=== PATIENT | male | born 1975 | race Caucasian/White ===

== ENCOUNTER 2021-07-09 17:59 | Emergency (ER) | payer SELFPAY ==
[2021-07-09 18:32] VITALS: TEMP 98.2; BMI 47.2
[2021-07-09] MEDS ORDERED: ACETAMINOPHEN 1000 MG/100 ML VIAL (NON FORMULARY) IVPB ONE (20:26)
[2021-07-09] MEDS ORDERED: ALBUTEROL SO4 2.5/IPRATROPIUM 0.5 INH SOL 3 ML VIAL.NEB. NEB ONE (20:32)
[2021-07-09] MEDS ORDERED: ACETAMINOPHEN INJECTION 100 ML IVPB ONE (20:32)
[2021-07-09] MEDS: ALBUTEROL SO4 2.5/IPRATROPIUM 0.5 INH SOL 3 ML VIAL.NEB. NEB SCH ×3 (20:46→23:01)
[2021-07-09 21:21] LABS: BASO % 0.6 % (0-2.0); EOS % 3.5 % (0-4.5); HEMATOCRIT 43.7 % (35.4-49); HEMOGLOBIN 15.2 GM/dL (11.7-16.9); LYMPH % 16.1 % (8-40); MCH 31.8 pg (25.7-33.7); MCHC 34.9 g/dl (32.0-35.9); MEAN CELL VOLUME 91.2 fl (80-96); MEAN PLT VOLUME 8.9 fl (7.5-11.1); MONO % 10.4 % (3.8-10.2); NEUT % 69.4 % (42.8-82.8); PLATELET COUNT 335 10^3/uL (134-434); RBC 4.79 M/mm3 (4.00-5.60); RDW 13.5 % (11.9-15.9)
[2021-07-09 21:30] LABS: CHLORIDE 98 mmol/L (98-107); SODIUM 135 mmol/L (136-145)
[2021-07-09 21:33] LABS: CALCIUM 8.5 mg/dL (8.5-10.1)
[2021-07-09 21:34] LABS: ALBUMIN 3.6 g/dl (3.4-5.0); ANION GAP 9 MMOL/L (8-16); CO2 28 mmol/L (21-32); GLUCOSE,RANDOM 80 mg/dL (74-106)
[2021-07-09 21:37] LABS: CREATININE 1.3 mg/dL (0.55-1.3); SGOT/AST 89 U/L (15-37); SGPT/ALT 90 U/L (13-61)
[2021-07-09 21:38] LABS: BILIRUBIN,TOTAL 0.5 mg/dL (0.2-1)
[2021-07-09 21:39] LABS: TOT PROT 7.3 g/dl (6.4-8.2)
[2021-07-09 21:40] LABS: ALK PHOS 95 U/L (45-117)
[2021-07-09 21:42] LABS: N-TERMINAL BNP 38.3 pg/ml (5-125)
[2021-07-09 21:54] LABS: PLATELET ESTIMATE NORMAL
[2021-07-09] MEDS ORDERED: AZITHROMYCIN IVPB 500 MG in DEXTROSE 5%-WATER - 250 ML IVPB ONE ×2 (22:40→22:41)
[2021-07-09] MEDS ORDERED: AZITHROMYCIN 250 MG TABLET PO ONE (22:45)
[2021-07-09] MEDS ORDERED: NICOTINE 7 MG/24 HOURS TOPICAL PATCH TD PRN (22:59)
[2021-07-09] MEDS ORDERED: CEFTRIAXONE 1 MG in DEXTROSE 5%-WATER - 50 ML IVPB ONE (23:02)
[2021-07-09] MEDS ORDERED: AZITHROMYCIN 250 MG TABLET ONE (23:04)
[2021-07-09] MEDS ORDERED: CEFTRIAXONE 1 GM/50 ML BAG ONE (23:04)
[2021-07-09 23:27] VITALS: BP 130/76; PULSE 71
== END 2021-07-10 01:41 | disposition home or self-care (01) ==
LOC: JER 17:59 → UNDOADMIN 21:32 → JERBED 21:32 → JER 07-10 01:41
PROC: 3E0333Z Introduction of Anti-inflammatory into Peripheral Vein, Percutaneous Approach (ICD-10-PCS; principal; 2021-07-09)
PROC: 3E0F7GC Introduction of Other Therapeutic Substance into Respiratory Tract, Via Natural or Artificial Opening (ICD-10-PCS; 2021-07-09)
DX: R05 Cough (principal); E66.01 Morbid (severe) obesity due to excess calories
CPT/HCPCS: 36415; 71045-TC-FY; 80053; 82550; 82553; 83880; 84484; 85025; 87804; 93005; 93010; 99285-25; C9803; J0131; U0003; U0005

== ENCOUNTER 2022-03-06 19:08 | Inpatient (IN) | payer OTHER ==
[2022-03-06] MEDS ORDERED: ONDANSETRON *ODT* 4 MG TABLET SL PRN (20:28)
[2022-03-06] MEDS ORDERED: IBUPROFEN 400 MG TABLET (FP) PO PRN (20:28)
[2022-03-06] MEDS ORDERED: MAG HYDROX/AL HYDROX/SIMETH 30 ML UNIT-DOSE CUP PO PRN (20:28)
[2022-03-06] MEDS ORDERED: BENZOCAINE/MENTHOL (CHLORASEPTIC ) LOZENGE MM PRN (20:28)
[2022-03-06] MEDS ORDERED: DICYCLOMINE HCL 10 MG CAPSULE PO PRN (20:28)
[2022-03-06] MEDS ORDERED: NICOTINE POLACRILEX 2 MG GUM BUC PRN (20:28)
[2022-03-06] MEDS ORDERED: LOPERAMIDE HCL 2 MG CAPSULE PO PRN (20:28)
[2022-03-06] MEDS ORDERED: MAGNESIUM CITRATE 300 ML BOTTLE PO PRN (20:28)
[2022-03-06] MEDS ORDERED: BISMUTH SUBSALICYLATE 524 MG/30 ML PO PRN (20:28)
[2022-03-06] MEDS ORDERED: ACETAMINOPHEN 325 MG TABLET (FP) PO PRN ×2 (20:28)
[2022-03-06] MEDS ORDERED: MAGNESIUM HYDROX 2400MG/30ML ORAL SUSPENSION 30 ML CUP PO PRN (20:28)
[2022-03-06 21:12] VITALS: BMI 42.0
[2022-03-06] MEDS ORDERED: cloNIDine HCL 0.1 MG TABLET PO ONE (21:35)
[2022-03-06] MEDS ORDERED: cloNIDine HCL 0.1 MG TABLET ONE (21:38)
[2022-03-06] MEDS: METHOCARBAMOL 500 MG TABLET PO PRN (23:41)
[2022-03-06] MEDS: THIAMINE HCL 100 MG TABLET (FP) PO SCH (23:48)
[2022-03-06] MEDS: MELATONIN 5 MG TABLETS PO SCH (23:48)
[2022-03-07] MEDS ORDERED: chlordiazePOXIDE HCL 25 MG CAPSULE PO PRN (09:04)
[2022-03-07] MEDS: amLODIPine BESYLATE 10 MG TABLET (FP) PO SCH (10:36)
[2022-03-07] MEDS: chlordiazePOXIDE HCL 25 MG CAPSULE PO SCH ×3 (10:36→22:11)
[2022-03-07] MEDS: PRENATAL VITAMINS W/ FOLIC ACID TABLET (FP) PO SCH (10:36)
[2022-03-07] MEDS: NICOTINE 14 MG/24 HOURS TOPICAL PATCH TD SCH (10:37)
[2022-03-07] MEDS: METHOCARBAMOL 500 MG TABLET PO PRN ×2 (10:41→22:11)
[2022-03-07 10:48] LABS: BLOOD UREA NITROGEN 9.2 mg/dL (7-18); CALCIUM 8.9 mg/dL (8.5-10.1)
[2022-03-07 10:49] LABS: ALBUMIN 3.3 g/dl (3.4-5.0); HEMOGLOBIN 16.7 GM/dL (11.7-16.9); MCH 30.6 pg (25.7-33.7); MCHC 32.7 g/dl (32.0-35.9); MEAN CELL VOLUME 93.6 fl (80-96); MEAN PLT VOLUME 9.1 fl (7.5-11.1); PLATELET COUNT 300 10^3/uL (134-434); RBC 5.45 M/mm3 (4.00-5.60); RDW 13.2 % (11.9-15.9); WHITE BLOOD COUNT 8.3 K/mm3 (4.0-10.0)
[2022-03-07 10:53] LABS: BILIRUBIN,TOTAL 0.9 mg/dL (0.2-1); TOT PROT 7.5 g/dl (6.4-8.2)
[2022-03-07] MEDS: CARVEDILOL 25 MG TABLET (FP) PO SCH ×2 (12:11→22:10)
[2022-03-07] MEDS: LOSARTAN 50MG/HCTZ 12.5MG 1 TAB PO SCH (12:13)
[2022-03-07] MEDS: THIAMINE HCL 100 MG TABLET (FP) PO SCH (22:10)
[2022-03-07] MEDS: MELATONIN 5 MG TABLETS PO SCH (22:12)
[2022-03-08] MEDS: chlordiazePOXIDE HCL 25 MG CAPSULE PO SCH ×4 (05:49→22:22)
[2022-03-08] MEDS: PRENATAL VITAMINS W/ FOLIC ACID TABLET (FP) PO SCH (10:42)
[2022-03-08] MEDS: CARVEDILOL 25 MG TABLET (FP) PO SCH ×2 (10:43→22:21)
[2022-03-08] MEDS: METHOCARBAMOL 500 MG TABLET PO PRN ×2 (10:43→17:33)
[2022-03-08] MEDS: LOSARTAN 50MG/HCTZ 12.5MG 1 TAB PO SCH (10:43)
[2022-03-08] MEDS: amLODIPine BESYLATE 10 MG TABLET (FP) PO SCH (10:43)
[2022-03-08] MEDS: NICOTINE 14 MG/24 HOURS TOPICAL PATCH TD SCH (10:44)
[2022-03-08 14:08] LABS: SARS-CoV-2 NAA Not Detected (Not Detected)
[2022-03-08 14:08] LABS: SARS-CoV-2 NAA Not Detected (Not Detected)
[2022-03-08] MEDS: MELATONIN 5 MG TABLETS PO SCH (22:22)
[2022-03-08] MEDS: THIAMINE HCL 100 MG TABLET (FP) PO SCH (22:22)
[2022-03-09] MEDS ORDERED: chlordiazePOXIDE HCL 10 MG CAPSULE PO PRN
[2022-03-09] MEDS: chlordiazePOXIDE HCL 10 MG CAPSULE PO SCH ×4 (05:56→22:13)
[2022-03-09] MEDS: amLODIPine BESYLATE 10 MG TABLET (FP) PO SCH (10:25)
[2022-03-09] MEDS: METHOCARBAMOL 500 MG TABLET PO PRN ×3 (10:25→22:13)
[2022-03-09] MEDS: PRENATAL VITAMINS W/ FOLIC ACID TABLET (FP) PO SCH (10:25)
[2022-03-09] MEDS: LOSARTAN 50MG/HCTZ 12.5MG 1 TAB PO SCH (10:26)
[2022-03-09] MEDS: CARVEDILOL 25 MG TABLET (FP) PO SCH ×2 (10:27→22:13)
[2022-03-09] MEDS: NICOTINE 14 MG/24 HOURS TOPICAL PATCH TD SCH (10:28)
[2022-03-09] MEDS: THIAMINE HCL 100 MG TABLET (FP) PO SCH (22:12)
[2022-03-09] MEDS: MELATONIN 5 MG TABLETS PO SCH (22:13)
[2022-03-10] MEDS: chlordiazePOXIDE HCL 10 MG CAPSULE PO SCH ×2 (05:55→18:31)
[2022-03-10] MEDS: LOSARTAN 50MG/HCTZ 12.5MG 1 TAB PO SCH (10:32)
[2022-03-10] MEDS: CARVEDILOL 25 MG TABLET (FP) PO SCH (10:32)
[2022-03-10] MEDS: PRENATAL VITAMINS W/ FOLIC ACID TABLET (FP) PO SCH (10:32)
[2022-03-10] MEDS: METHOCARBAMOL 500 MG TABLET PO PRN (10:33)
[2022-03-10] MEDS: amLODIPine BESYLATE 10 MG TABLET (FP) PO SCH (10:33)
[2022-03-10] MEDS: NICOTINE 14 MG/24 HOURS TOPICAL PATCH TD SCH (10:33)
[2022-03-10 18:37] VITALS: BP 135/77; PULSE 75; TEMP 97.7
[2022-03-11] MEDS ORDERED: chlordiazePOXIDE HCL 10 MG CAPSULE PO ONE (05:00)
== END 2022-03-10 19:20 | disposition home or self-care (01) | DRG 775 ==
LOC: YASAS 19:08 → Y6N 22:52
PROVIDERS: ADMIT Allergy & Immunology; ATTEND Allergy & Immunology
PROC: HZ2ZZZZ Detoxification Services for Substance Abuse Treatment (ICD-10-PCS; principal; 2022-03-06)
DX: F10.230 Alcohol dependence with withdrawal, uncomplicated (principal); F17.210 Nicotine dependence, cigarettes, uncomplicated; F10.24 Alcohol dependence with alcohol-induced mood disorder; F10.280 Alcohol dependence with alcohol-induced anxiety disorder; F10.282 Alcohol dependence with alcohol-induced sleep disorder; E78.5 Hyperlipidemia, unspecified; I11.0 Hypertensive heart disease with heart failure; I50.9 Heart failure, unspecified; G47.33 Obstructive sleep apnea (adult) (pediatric); Z62.810 Personal history of physical and sexual abuse in childhood; E66.01 Morbid (severe) obesity due to excess calories; Z68.41 Body mass index [BMI] 40.0-44.9, adult; Z28.310 Unvaccinated for COVID-19; Z56.0 Unemployment, unspecified; Z59.00 Homelessness unspecified
CPT/HCPCS: 36415; 80053; 85027; 86780; 93005; 93010; C9803-CS; J0735; U0003; U0005

== ENCOUNTER 2022-03-14 12:03 | Inpatient (IN) | payer BC, OTHER ==
[2022-03-14] MEDS ORDERED: MAGNESIUM SULF 50% (8.12 MEQ/2 ML-1 GM VIAL) IVPB ONE ×3 (13:22→13:52)
[2022-03-14] MEDS ORDERED: NITROGLYCERIN SUBLINGUAL 1/150 0.4 MG TAB SL ONE (13:23)
[2022-03-14] MEDS ORDERED: MAGNESIUM SULF 50% (8.12 MEQ/2 ML-1 GM VIAL) ONE (13:35)
[2022-03-14] MEDS ORDERED: NITROGLYCERIN SUBLINGUAL 1/150 0.4 MG TAB ONE (13:36)
[2022-03-14 13:52] LABS: BASO % 0.8 % (0-2.0); EOS % 2.9 % (0-4.5); HEMATOCRIT 47.6 % (35.4-49); LYMPH % 17.5 % (8-40); MCH 30.9 pg (25.7-33.7); MCHC 33.5 g/dl (32.0-35.9); MEAN CELL VOLUME 92.3 fl (80-96); MEAN PLT VOLUME 8.7 fl (7.5-11.1); MONO % 16.6 % (3.8-10.2); NEUT % 62.2 % (42.8-82.8); PLATELET COUNT 252 10^3/uL (134-434); RBC 5.16 M/mm3 (4.00-5.60); RDW 13.2 % (11.9-15.9); WHITE BLOOD COUNT 7.3 K/mm3 (4.0-10.0)
[2022-03-14 14:17] LABS: CALCIUM 8.9 mg/dL (8.5-10.1)
[2022-03-14 14:18] LABS: ALBUMIN 3.2 g/dl (3.4-5.0); BLOOD UREA NITROGEN 10.3 mg/dL (7-18)
[2022-03-14 14:22] LABS: BILIRUBIN,TOTAL 0.4 mg/dL (0.2-1)
[2022-03-14 14:25] LABS: TOT PROT 6.9 g/dl (6.4-8.2)
[2022-03-14 14:30] LABS: N-TERMINAL BNP 120.4 pg/ml (5-125)
[2022-03-14 15:03] LABS: URINE APPEARANCE CLEAR; URINE BILIRUBIN NEGATIVE (NEGATIVE); URINE COLOR YELLOW; URINE GLUCOSE (UA) TRACE (NEGATIVE); URINE KETONE NEGATIVE (NEGATIVE); URINE LEUK ESTERASE NEGATIVE (NEGATIVE); URINE NITRITE NEGATIVE (NEGATIVE); URINE PROTEIN NEGATIVE (NEGATIVE); URINE UROBILINOGEN 0.2 mg/dL (0.2-1.0)
[2022-03-14] MEDS ORDERED: FUROSEMIDE 40 MG/4 ML INJECTABLE VIAL IVPUSH ONE (15:17)
[2022-03-14] MEDS ORDERED: FUROSEMIDE 40 MG/4 ML INJECTABLE VIAL ONE (15:29)
[2022-03-14] MEDS ORDERED: LOSARTAN POTASSIUM 50 MG TABLET PO ONE (16:43)
[2022-03-14 18:28] LABS: METHADONE, UR NEGATIVE (NEGATIVE)
[2022-03-14 18:29] LABS: OPIATES, URI NEGATIVE (NEGATIVE); PHENCYCLIDINE,URINE NEGATIVE (NEGATIVE); URINE AMPHETAMINES NEGATIVE (NEGATIVE)
[2022-03-14 18:31] LABS: COCAINE, UR POSITIVE (NEGATIVE); URINE BARBITURATES NEGATIVE (NEGATIVE); URINE BENZODIAZEPINES POSITIVE (NEGATIVE)
[2022-03-14 20:31] VITALS: BMI 45.3
[2022-03-14] MEDS: diazePAM 5 MG TABLET PO PRN (21:58)
[2022-03-14] MEDS: ENOXAPARIN NA (PORCINE) 40 MG/0.4 ML DISP.SYRIN SQ SCH (21:58)
[2022-03-15 07:52] LABS: BLOOD UREA NITROGEN 15.7 mg/dL (7-18)
[2022-03-15 07:55] LABS: ALBUMIN 3.2 g/dl (3.4-5.0)
[2022-03-15 07:56] LABS: BILIRUBIN,TOTAL 0.7 mg/dL (0.2-1)
[2022-03-15 07:59] LABS: TOT PROT 6.8 g/dl (6.4-8.2)
[2022-03-15] MEDS ORDERED: FUROSEMIDE 40 MG/4 ML INJECTABLE VIAL IVPUSH SCH (10:00)
[2022-03-15] MEDS ORDERED: HYDROCHLOROTHIAZIDE 25 MG TABLET (FP) PO SCH (10:00)
[2022-03-15] MEDS: ENOXAPARIN NA (PORCINE) 40 MG/0.4 ML DISP.SYRIN SQ SCH ×2 (10:57→21:39)
[2022-03-15] MEDS: amLODIPine BESYLATE 10 MG TABLET (FP) PO SCH (10:58)
[2022-03-15] MEDS: LOSARTAN POTASSIUM 50 MG TABLET PO SCH (10:59)
[2022-03-15] MEDS: CARVEDILOL 25 MG TABLET (FP) PO SCH ×2 (12:00→21:39)
[2022-03-15] MEDS: ATORVASTATIN CA 40 MG TABLET (FP) PO SCH (21:39)
[2022-03-15] MEDS: diazePAM 5 MG TABLET PO PRN (23:00)
[2022-03-16] MEDS: FUROSEMIDE 40 MG TABLET (FP) PO SCH ×2 (05:53→14:01)
[2022-03-16 07:58] LABS: ALBUMIN 3.1 g/dl (3.4-5.0)
[2022-03-16 07:59] LABS: CALCIUM 9.3 mg/dL (8.5-10.1)
[2022-03-16 08:00] LABS: BILIRUBIN,TOTAL 0.5 mg/dL (0.2-1)
[2022-03-16 08:02] LABS: TOT PROT 6.5 g/dl (6.4-8.2)
[2022-03-16] MEDS: ENOXAPARIN NA (PORCINE) 40 MG/0.4 ML DISP.SYRIN SQ SCH ×2 (09:36→21:56)
[2022-03-16] MEDS: CARVEDILOL 25 MG TABLET (FP) PO SCH ×2 (09:37→21:56)
[2022-03-16] MEDS: amLODIPine BESYLATE 10 MG TABLET (FP) PO SCH (09:37)
[2022-03-16] MEDS: LOSARTAN POTASSIUM 50 MG TABLET PO SCH (09:37)
[2022-03-16] MEDS: ATORVASTATIN CA 40 MG TABLET (FP) PO SCH (21:56)
[2022-03-16] MEDS: diazePAM 5 MG TABLET PO PRN (21:56)
[2022-03-17] MEDS: FUROSEMIDE 40 MG TABLET (FP) PO SCH ×2 (07:22→13:12)
[2022-03-17] MEDS: LOSARTAN POTASSIUM 50 MG TABLET PO SCH (09:12)
[2022-03-17] MEDS: CARVEDILOL 25 MG TABLET (FP) PO SCH ×2 (09:12→21:29)
[2022-03-17] MEDS: ENOXAPARIN NA (PORCINE) 40 MG/0.4 ML DISP.SYRIN SQ SCH ×2 (09:12→21:29)
[2022-03-17] MEDS: amLODIPine BESYLATE 10 MG TABLET (FP) PO SCH (09:12)
[2022-03-17] MEDS ORDERED: CEFTRIAXONE 1 GM in DEXTROSE 5%-WATER - 50 ML IVPB SCH ×2 (14:45→15:00)
[2022-03-17] MEDS ORDERED: DEXTROSE 5%-WATER - 50 ML IVPB ONE (14:52)
[2022-03-17] MEDS ORDERED: cefTRIAXone SODIUM 1 GM VIAL ONE (14:52)
[2022-03-17] MEDS: ATORVASTATIN CA 40 MG TABLET (FP) PO SCH (21:29)
[2022-03-17] MEDS ORDERED: diazePAM 5 MG TABLET PO ONE (21:42)
[2022-03-18] MEDS: FUROSEMIDE 40 MG TABLET (FP) PO SCH ×2 (05:49→13:54)
[2022-03-18 07:55] LABS: BASO % 0.7 % (0-2.0); HEMATOCRIT 47.9 % (35.4-49); LYMPH % 19.5 % (8-40); MCH 31.1 pg (25.7-33.7); MCHC 33.3 g/dl (32.0-35.9); MEAN CELL VOLUME 93.5 fl (80-96); MEAN PLT VOLUME 8.8 fl (7.5-11.1); MONO % 8.2 % (3.8-10.2); NEUT % 67.6 % (42.8-82.8); PLATELET COUNT 302 10^3/uL (134-434); RBC 5.13 M/mm3 (4.00-5.60); RDW 12.8 % (11.9-15.9); WHITE BLOOD COUNT 10.9 K/mm3 (4.0-10.0)
[2022-03-18 08:14] LABS: CALCIUM 9.1 mg/dL (8.5-10.1)
[2022-03-18 08:15] LABS: BLOOD UREA NITROGEN 17.2 mg/dL (7-18)
[2022-03-18 08:18] LABS: CREATININE 1.1 mg/dL (0.55-1.3)
[2022-03-18] MEDS: amLODIPine BESYLATE 10 MG TABLET (FP) PO SCH (09:38)
[2022-03-18] MEDS: ENOXAPARIN NA (PORCINE) 40 MG/0.4 ML DISP.SYRIN SQ SCH ×2 (09:38→21:05)
[2022-03-18] MEDS: LOSARTAN POTASSIUM 50 MG TABLET PO SCH (09:38)
[2022-03-18] MEDS: CARVEDILOL 25 MG TABLET (FP) PO SCH ×2 (09:38→21:04)
[2022-03-18] MEDS ORDERED: MELATONIN 5 MG TABLETS PO ONE (21:19)
[2022-03-18] MEDS ORDERED: ATORVASTATIN CA 40 MG TABLET (FP) PO SCH (22:00)
[2022-03-19] MEDS: FUROSEMIDE 40 MG TABLET (FP) PO SCH (06:19)
[2022-03-19 08:50] LABS: HEMATOCRIT 48.2 % (35.4-49); HEMOGLOBIN 16.4 GM/dL (11.7-16.9); MCH 31.1 pg (25.7-33.7); MEAN CELL VOLUME 91.6 fl (80-96); MEAN PLT VOLUME 7.8 fl (7.5-11.1); PLATELET COUNT 302 10^3/uL (134-434); RBC 5.26 M/mm3 (4.00-5.60); WHITE BLOOD COUNT 9.3 K/mm3 (4.0-10.0)
[2022-03-19 09:15] LABS: ALBUMIN 3.2 g/dl (3.4-5.0)
[2022-03-19 09:16] LABS: BLOOD UREA NITROGEN 16.6 mg/dL (7-18)
[2022-03-19 09:23] LABS: BILIRUBIN,TOTAL 0.8 mg/dL (0.2-1); CREATININE 0.9 mg/dL (0.55-1.3); TOT PROT 6.8 g/dl (6.4-8.2)
[2022-03-19] MEDS ORDERED: LOSARTAN POTASSIUM 50 MG TABLET PO SCH (10:00)
[2022-03-19] MEDS ORDERED: amLODIPine BESYLATE 10 MG TABLET (FP) PO SCH (10:00)
[2022-03-19] MEDS: CARVEDILOL 25 MG TABLET (FP) PO SCH (10:03)
[2022-03-19] MEDS: ENOXAPARIN NA (PORCINE) 40 MG/0.4 ML DISP.SYRIN SQ SCH (10:05)
[2022-03-19 10:32] LABS: ANISOCYTOSIS 0; HELMET CELLS 0; HOWELL-JOLLY BODIES 0; MACROCYTOSIS 0; OVALOCYTE 0; ROULEAU 0; SICKELED CELLS 0; TARGET CELLS 0; TEAR DROP CELLS 0; TOXIC GRANULATION 0
[2022-03-19 12:02] VITALS: BP 147/99; PULSE 78; TEMP 97.8
== END 2022-03-19 12:34 | disposition other institution (70) | DRG 291 ==
LOC: JER 12:03 → JERBED 15:54 → OBSVTOIN 16:40 → J4W 17:56 → J5S 03-18 10:24
PROVIDERS: ADMIT Internal Medicine
DX: I11.0 Hypertensive heart disease with heart failure (principal); I50.33 Acute on chronic diastolic (congestive) heart failure; I16.9 Hypertensive crisis, unspecified; Z68.42 Body mass index [BMI] 45.0-49.9, adult; E66.01 Morbid (severe) obesity due to excess calories; G47.33 Obstructive sleep apnea (adult) (pediatric); R94.31 Abnormal electrocardiogram [ECG] [EKG]; R74.01 Elevation of levels of liver transaminase levels; R79.89 Other specified abnormal findings of blood chemistry; F10.10 Alcohol abuse, uncomplicated; F14.10 Cocaine abuse, uncomplicated; Z91.14 Patient's other noncompliance with medication regimen; E78.5 Hyperlipidemia, unspecified; Z59.00 Homelessness unspecified
CPT/HCPCS: 36415; 71046-TC-FY; 80048; 80053; 80061; 80307; 81003; 83036; 83735; 83880; 84484; 85025; 86705; 86803; 87077; 87086; 87340; 87517; 93005; 93010; 93306-TC; 99285-25; C9803-CS; G0378; U0003; U0005

== ENCOUNTER 2022-03-19 13:27 | Inpatient (IN) | payer OTHER ==
[2022-03-19] MEDS ORDERED: LOPERAMIDE HCL 2 MG CAPSULE PO PRN (15:04)
[2022-03-19] MEDS ORDERED: guaiFENesin 200 MG/10 ML 10 ML UNIT-DOSE CUPS PO PRN (15:04)
[2022-03-19] MEDS ORDERED: MAGNESIUM CITRATE 300 ML BOTTLE PO PRN (15:04)
[2022-03-19] MEDS ORDERED: NICOTINE 10 MG CARTRIDGE (INHALER) IH PRN (15:04)
[2022-03-19] MEDS ORDERED: MAG HYDROX/AL HYDROX/SIMETH 30 ML UNIT-DOSE CUP PO PRN (15:04)
[2022-03-19] MEDS ORDERED: ACETAMINOPHEN 325 MG TABLET (FP) PO PRN (15:04)
[2022-03-19] MEDS ORDERED: P-EPHED 60MG/TRIPROLIDI 2.5MG TABLET PO PRN (15:04)
[2022-03-19] MEDS ORDERED: NALOXONE HCL (KLOXXADO) 8 MG SPRAY NS PRN (15:04)
[2022-03-19] MEDS ORDERED: MAGNESIUM HYDROX 2400MG/30ML ORAL SUSPENSION 30 ML CUP PO PRN (15:04)
[2022-03-19] MEDS ORDERED: IBUPROFEN 400 MG TABLET (FP) PO PRN (15:04)
[2022-03-19 21:13] VITALS: BMI 45.4
[2022-03-20] MEDS: PRENATAL VITAMINS W/ FOLIC ACID TABLET (FP) PO SCH ×2 (00:22→09:57)
[2022-03-20] MEDS: NICOTINE 7 MG/24 HOURS TOPICAL PATCH TD SCH ×2 (00:22→09:58)
[2022-03-20] MEDS: hydrOXYzine PAMOATE 25 MG CAPSULE (FP) PO SCH ×7 (00:22→21:18)
[2022-03-20] MEDS: THIAMINE HCL 100 MG TABLET (FP) PO SCH ×2 (00:28→21:18)
[2022-03-20] MEDS: MELATONIN 5 MG TABLETS PO SCH ×2 (00:28→21:18)
[2022-03-20] MEDS: ATORVASTATIN CA 40 MG TABLET (FP) PO SCH ×2 (00:29→21:18)
[2022-03-20] MEDS: CARVEDILOL 25 MG TABLET (FP) PO SCH ×3 (00:32→21:18)
[2022-03-20] MEDS: FUROSEMIDE 40 MG TABLET (FP) PO SCH ×2 (05:45→13:31)
[2022-03-20] MEDS: amLODIPine BESYLATE 10 MG TABLET (FP) PO SCH (09:57)
[2022-03-20] MEDS: LOSARTAN POTASSIUM 50 MG TABLET PO SCH (14:46)
[2022-03-20 17:04] LABS: EPI CELLS 24 /uL (0-25.1); HYALINE CASTS 10 /uL (0-3.1); URINE APPEARANCE CLEAR; URINE BACTERIA 5 /uL (0-1359); URINE BILIRUBIN NEGATIVE (NEGATIVE); URINE COLOR YELLOW; URINE GLUCOSE (UA) NEGATIVE (NEGATIVE); URINE KETONE NEGATIVE (NEGATIVE); URINE LEUK ESTERASE NEGATIVE (NEGATIVE); URINE NITRITE NEGATIVE (NEGATIVE); URINE PROTEIN 1+ (NEGATIVE); URINE RBC 11 /uL (0-23.9); URINE UROBILINOGEN 0.2 mg/dL (0.2-1.0); URINE WBC 16 /uL (0-25.8)
[2022-03-21] MEDS: FUROSEMIDE 40 MG TABLET (FP) PO SCH ×2 (05:58→14:08)
[2022-03-21] MEDS: hydrOXYzine PAMOATE 25 MG CAPSULE (FP) PO SCH ×5 (05:58→21:12)
[2022-03-21] MEDS: LOSARTAN POTASSIUM 50 MG TABLET PO SCH (10:39)
[2022-03-21] MEDS: CARVEDILOL 25 MG TABLET (FP) PO SCH ×2 (10:39→21:12)
[2022-03-21] MEDS: amLODIPine BESYLATE 10 MG TABLET (FP) PO SCH (10:39)
[2022-03-21] MEDS: PRENATAL VITAMINS W/ FOLIC ACID TABLET (FP) PO SCH (10:39)
[2022-03-21] MEDS: NICOTINE 7 MG/24 HOURS TOPICAL PATCH TD SCH (10:40)
[2022-03-21] MEDS: MELATONIN 5 MG TABLETS PO SCH (21:12)
[2022-03-21] MEDS: ATORVASTATIN CA 40 MG TABLET (FP) PO SCH (21:12)
[2022-03-21] MEDS: THIAMINE HCL 100 MG TABLET (FP) PO SCH (21:12)
[2022-03-22] MEDS: FUROSEMIDE 40 MG TABLET (FP) PO SCH ×2 (06:34→13:41)
[2022-03-22] MEDS: hydrOXYzine PAMOATE 25 MG CAPSULE (FP) PO SCH ×5 (06:34→21:30)
[2022-03-22] MEDS: amLODIPine BESYLATE 10 MG TABLET (FP) PO SCH (10:09)
[2022-03-22] MEDS: LOSARTAN POTASSIUM 50 MG TABLET PO SCH (10:09)
[2022-03-22] MEDS: PRENATAL VITAMINS W/ FOLIC ACID TABLET (FP) PO SCH (10:09)
[2022-03-22] MEDS: CARVEDILOL 25 MG TABLET (FP) PO SCH ×2 (10:09→21:28)
[2022-03-22] MEDS: NICOTINE 7 MG/24 HOURS TOPICAL PATCH TD SCH (10:10)
[2022-03-22] MEDS: MELATONIN 5 MG TABLETS PO SCH (21:29)
[2022-03-22] MEDS: THIAMINE HCL 100 MG TABLET (FP) PO SCH (21:29)
[2022-03-22] MEDS: ATORVASTATIN CA 40 MG TABLET (FP) PO SCH (21:29)
[2022-03-23] MEDS: hydrOXYzine PAMOATE 25 MG CAPSULE (FP) PO SCH ×5 (06:06→21:11)
[2022-03-23] MEDS: FUROSEMIDE 40 MG TABLET (FP) PO SCH ×2 (06:06→14:05)
[2022-03-23] MEDS: LOSARTAN POTASSIUM 50 MG TABLET PO SCH (10:06)
[2022-03-23] MEDS: amLODIPine BESYLATE 10 MG TABLET (FP) PO SCH (10:06)
[2022-03-23] MEDS: CARVEDILOL 25 MG TABLET (FP) PO SCH ×2 (10:06→22:54)
[2022-03-23] MEDS: PRENATAL VITAMINS W/ FOLIC ACID TABLET (FP) PO SCH (10:06)
[2022-03-23] MEDS: NICOTINE 7 MG/24 HOURS TOPICAL PATCH TD SCH (10:06)
[2022-03-23 14:09] LABS: SARS-CoV-2 NAA Not Detected (Not Detected)
[2022-03-23] MEDS: ATORVASTATIN CA 40 MG TABLET (FP) PO SCH (21:11)
[2022-03-23] MEDS: MELATONIN 5 MG TABLETS PO SCH (21:13)
[2022-03-23] MEDS: THIAMINE HCL 100 MG TABLET (FP) PO SCH (21:13)
[2022-03-24] MEDS: FUROSEMIDE 40 MG TABLET (FP) PO SCH ×2 (06:23→13:55)
[2022-03-24] MEDS: hydrOXYzine PAMOATE 25 MG CAPSULE (FP) PO SCH ×5 (06:23→21:10)
[2022-03-24] MEDS: amLODIPine BESYLATE 10 MG TABLET (FP) PO SCH (10:03)
[2022-03-24] MEDS: CARVEDILOL 25 MG TABLET (FP) PO SCH ×2 (10:03→21:39)
[2022-03-24] MEDS: NICOTINE 7 MG/24 HOURS TOPICAL PATCH TD SCH (10:03)
[2022-03-24] MEDS: PRENATAL VITAMINS W/ FOLIC ACID TABLET (FP) PO SCH (10:03)
[2022-03-24] MEDS: LOSARTAN POTASSIUM 50 MG TABLET PO SCH (10:03)
[2022-03-24] MEDS: ATORVASTATIN CA 40 MG TABLET (FP) PO SCH (21:10)
[2022-03-24] MEDS: MELATONIN 5 MG TABLETS PO SCH (21:10)
[2022-03-24] MEDS: THIAMINE HCL 100 MG TABLET (FP) PO SCH (21:10)
[2022-03-25] MEDS: hydrOXYzine PAMOATE 25 MG CAPSULE (FP) PO SCH ×5 (06:47→21:15)
[2022-03-25] MEDS: FUROSEMIDE 40 MG TABLET (FP) PO SCH ×2 (06:47→14:22)
[2022-03-25] MEDS: CARVEDILOL 25 MG TABLET (FP) PO SCH ×2 (09:57→21:15)
[2022-03-25] MEDS: amLODIPine BESYLATE 10 MG TABLET (FP) PO SCH (09:57)
[2022-03-25] MEDS: PRENATAL VITAMINS W/ FOLIC ACID TABLET (FP) PO SCH (09:57)
[2022-03-25] MEDS: NICOTINE 7 MG/24 HOURS TOPICAL PATCH TD SCH (09:59)
[2022-03-25] MEDS: LOSARTAN POTASSIUM 50 MG TABLET PO SCH (10:29)
[2022-03-25] MEDS: THIAMINE HCL 100 MG TABLET (FP) PO SCH (21:15)
[2022-03-25] MEDS: ATORVASTATIN CA 40 MG TABLET (FP) PO SCH (21:15)
[2022-03-25] MEDS: MELATONIN 5 MG TABLETS PO SCH (21:15)
[2022-03-26] MEDS: FUROSEMIDE 40 MG TABLET (FP) PO SCH ×2 (06:22→14:35)
[2022-03-26] MEDS: hydrOXYzine PAMOATE 25 MG CAPSULE (FP) PO SCH (06:22)
[2022-03-26] MEDS: PRENATAL VITAMINS W/ FOLIC ACID TABLET (FP) PO SCH (10:05)
[2022-03-26] MEDS: amLODIPine BESYLATE 10 MG TABLET (FP) PO SCH (10:06)
[2022-03-26] MEDS: NICOTINE 7 MG/24 HOURS TOPICAL PATCH TD SCH (10:06)
[2022-03-26] MEDS: LOSARTAN POTASSIUM 50 MG TABLET PO SCH (10:06)
[2022-03-26] MEDS: hydrOXYzine PAMOATE 25 MG CAPSULE (FP) PO PRN ×2 (10:06→21:25)
[2022-03-26] MEDS: CARVEDILOL 25 MG TABLET (FP) PO SCH ×2 (10:07→21:24)
[2022-03-26] MEDS: MELATONIN 5 MG TABLETS PO SCH (21:24)
[2022-03-26] MEDS: ATORVASTATIN CA 40 MG TABLET (FP) PO SCH (21:24)
[2022-03-26] MEDS: THIAMINE HCL 100 MG TABLET (FP) PO SCH (21:24)
[2022-03-27] MEDS: FUROSEMIDE 40 MG TABLET (FP) PO SCH ×2 (06:24→14:08)
[2022-03-27] MEDS: LOSARTAN POTASSIUM 50 MG TABLET PO SCH (09:48)
[2022-03-27] MEDS: CARVEDILOL 25 MG TABLET (FP) PO SCH ×2 (09:48→21:37)
[2022-03-27] MEDS: PRENATAL VITAMINS W/ FOLIC ACID TABLET (FP) PO SCH (09:48)
[2022-03-27] MEDS: NICOTINE 7 MG/24 HOURS TOPICAL PATCH TD SCH (09:48)
[2022-03-27] MEDS: amLODIPine BESYLATE 10 MG TABLET (FP) PO SCH (09:48)
[2022-03-27] MEDS: ATORVASTATIN CA 40 MG TABLET (FP) PO SCH (21:37)
[2022-03-27] MEDS: MELATONIN 5 MG TABLETS PO SCH (21:37)
[2022-03-27] MEDS: hydrOXYzine PAMOATE 25 MG CAPSULE (FP) PO PRN (21:37)
[2022-03-27] MEDS: THIAMINE HCL 100 MG TABLET (FP) PO SCH (21:37)
[2022-03-28] MEDS: FUROSEMIDE 40 MG TABLET (FP) PO SCH ×2 (06:18→13:51)
[2022-03-28] MEDS: PRENATAL VITAMINS W/ FOLIC ACID TABLET (FP) PO SCH (10:23)
[2022-03-28] MEDS: LOSARTAN POTASSIUM 50 MG TABLET PO SCH (10:23)
[2022-03-28] MEDS: NICOTINE 7 MG/24 HOURS TOPICAL PATCH TD SCH (10:24)
[2022-03-28] MEDS: CARVEDILOL 25 MG TABLET (FP) PO SCH ×2 (10:24→21:15)
[2022-03-28] MEDS: amLODIPine BESYLATE 10 MG TABLET (FP) PO SCH (10:24)
[2022-03-28] MEDS: THIAMINE HCL 100 MG TABLET (FP) PO SCH (21:15)
[2022-03-28] MEDS: ATORVASTATIN CA 40 MG TABLET (FP) PO SCH (21:15)
[2022-03-28] MEDS: MELATONIN 5 MG TABLETS PO SCH (21:15)
[2022-03-28] MEDS: hydrOXYzine PAMOATE 25 MG CAPSULE (FP) PO PRN (21:15)
[2022-03-29] MEDS: FUROSEMIDE 40 MG TABLET (FP) PO SCH ×2 (06:33→14:00)
[2022-03-29] MEDS: hydrOXYzine PAMOATE 25 MG CAPSULE (FP) PO PRN ×2 (06:33→21:42)
[2022-03-29] MEDS: amLODIPine BESYLATE 10 MG TABLET (FP) PO SCH (10:17)
[2022-03-29] MEDS: CARVEDILOL 25 MG TABLET (FP) PO SCH ×2 (10:17→21:42)
[2022-03-29] MEDS: PRENATAL VITAMINS W/ FOLIC ACID TABLET (FP) PO SCH (10:18)
[2022-03-29] MEDS: LOSARTAN POTASSIUM 50 MG TABLET PO SCH (10:18)
[2022-03-29] MEDS: NICOTINE 7 MG/24 HOURS TOPICAL PATCH TD SCH (10:18)
[2022-03-29] MEDS: THIAMINE HCL 100 MG TABLET (FP) PO SCH (21:41)
[2022-03-29] MEDS: MELATONIN 5 MG TABLETS PO SCH (21:41)
[2022-03-29] MEDS: ATORVASTATIN CA 40 MG TABLET (FP) PO SCH (21:42)
[2022-03-30] MEDS: FUROSEMIDE 40 MG TABLET (FP) PO SCH ×2 (07:03→14:42)
[2022-03-30] MEDS: hydrOXYzine PAMOATE 25 MG CAPSULE (FP) PO PRN ×2 (07:06→21:27)
[2022-03-30] MEDS: NICOTINE 7 MG/24 HOURS TOPICAL PATCH TD SCH (10:50)
[2022-03-30] MEDS: amLODIPine BESYLATE 10 MG TABLET (FP) PO SCH (10:51)
[2022-03-30] MEDS: CARVEDILOL 25 MG TABLET (FP) PO SCH ×2 (10:51→21:27)
[2022-03-30] MEDS: LOSARTAN POTASSIUM 50 MG TABLET PO SCH (10:51)
[2022-03-30] MEDS: PRENATAL VITAMINS W/ FOLIC ACID TABLET (FP) PO SCH (10:51)
[2022-03-30] MEDS: MELATONIN 5 MG TABLETS PO SCH (21:27)
[2022-03-30] MEDS: ATORVASTATIN CA 40 MG TABLET (FP) PO SCH (21:27)
[2022-03-30] MEDS: THIAMINE HCL 100 MG TABLET (FP) PO SCH (21:27)
[2022-03-31] MEDS: hydrOXYzine PAMOATE 25 MG CAPSULE (FP) PO PRN ×2 (06:05→21:31)
[2022-03-31] MEDS: FUROSEMIDE 40 MG TABLET (FP) PO SCH ×2 (06:05→14:18)
[2022-03-31] MEDS: amLODIPine BESYLATE 10 MG TABLET (FP) PO SCH (10:26)
[2022-03-31] MEDS: LOSARTAN POTASSIUM 50 MG TABLET PO SCH (10:26)
[2022-03-31] MEDS: CARVEDILOL 25 MG TABLET (FP) PO SCH ×2 (10:26→21:31)
[2022-03-31] MEDS: NICOTINE 7 MG/24 HOURS TOPICAL PATCH TD SCH (10:26)
[2022-03-31] MEDS: PRENATAL VITAMINS W/ FOLIC ACID TABLET (FP) PO SCH (10:26)
[2022-03-31] MEDS: THIAMINE HCL 100 MG TABLET (FP) PO SCH (21:31)
[2022-03-31] MEDS: MELATONIN 5 MG TABLETS PO SCH (21:31)
[2022-03-31] MEDS: ATORVASTATIN CA 40 MG TABLET (FP) PO SCH (21:31)
[2022-04-01] MEDS: hydrOXYzine PAMOATE 25 MG CAPSULE (FP) PO PRN ×2 (06:17→21:31)
[2022-04-01] MEDS: FUROSEMIDE 40 MG TABLET (FP) PO SCH ×2 (06:17→14:58)
[2022-04-01] MEDS: CARVEDILOL 25 MG TABLET (FP) PO SCH ×2 (10:36→21:32)
[2022-04-01] MEDS: LOSARTAN POTASSIUM 50 MG TABLET PO SCH (10:36)
[2022-04-01] MEDS: NICOTINE 7 MG/24 HOURS TOPICAL PATCH TD SCH (10:36)
[2022-04-01] MEDS: amLODIPine BESYLATE 10 MG TABLET (FP) PO SCH (10:36)
[2022-04-01] MEDS: PRENATAL VITAMINS W/ FOLIC ACID TABLET (FP) PO SCH (10:36)
[2022-04-01] MEDS: ATORVASTATIN CA 40 MG TABLET (FP) PO SCH (21:32)
[2022-04-01] MEDS: MELATONIN 5 MG TABLETS PO SCH (21:32)
[2022-04-01] MEDS: THIAMINE HCL 100 MG TABLET (FP) PO SCH (21:32)
[2022-04-02] MEDS: FUROSEMIDE 40 MG TABLET (FP) PO SCH ×2 (06:10→14:30)
[2022-04-02] MEDS: hydrOXYzine PAMOATE 25 MG CAPSULE (FP) PO PRN ×2 (06:10→23:10)
[2022-04-02] MEDS: LOSARTAN POTASSIUM 50 MG TABLET PO SCH (10:28)
[2022-04-02] MEDS: PRENATAL VITAMINS W/ FOLIC ACID TABLET (FP) PO SCH (10:28)
[2022-04-02] MEDS: amLODIPine BESYLATE 10 MG TABLET (FP) PO SCH (10:28)
[2022-04-02] MEDS: NICOTINE 7 MG/24 HOURS TOPICAL PATCH TD SCH (10:28)
[2022-04-02] MEDS: CARVEDILOL 25 MG TABLET (FP) PO SCH ×2 (10:28→21:17)
[2022-04-02] MEDS: THIAMINE HCL 100 MG TABLET (FP) PO SCH (21:17)
[2022-04-02] MEDS: MELATONIN 5 MG TABLETS PO SCH (21:17)
[2022-04-02] MEDS: ATORVASTATIN CA 40 MG TABLET (FP) PO SCH (21:17)
[2022-04-03] MEDS: FUROSEMIDE 40 MG TABLET (FP) PO SCH ×2 (06:07→13:49)
[2022-04-03] MEDS: hydrOXYzine PAMOATE 25 MG CAPSULE (FP) PO PRN ×2 (06:07→21:12)
[2022-04-03] MEDS: CARVEDILOL 25 MG TABLET (FP) PO SCH ×2 (10:38→21:12)
[2022-04-03] MEDS: amLODIPine BESYLATE 10 MG TABLET (FP) PO SCH (10:38)
[2022-04-03] MEDS: NICOTINE 7 MG/24 HOURS TOPICAL PATCH TD SCH (10:38)
[2022-04-03] MEDS: LOSARTAN POTASSIUM 50 MG TABLET PO SCH (10:38)
[2022-04-03] MEDS: PRENATAL VITAMINS W/ FOLIC ACID TABLET (FP) PO SCH (10:38)
[2022-04-03] MEDS: THIAMINE HCL 100 MG TABLET (FP) PO SCH (21:10)
[2022-04-03] MEDS: MELATONIN 5 MG TABLETS PO SCH (21:12)
[2022-04-03] MEDS: ATORVASTATIN CA 40 MG TABLET (FP) PO SCH (21:12)
[2022-04-04] MEDS: FUROSEMIDE 40 MG TABLET (FP) PO SCH ×2 (06:01→13:54)
[2022-04-04] MEDS: hydrOXYzine PAMOATE 25 MG CAPSULE (FP) PO PRN ×2 (06:01→21:12)
[2022-04-04] MEDS: LOSARTAN POTASSIUM 50 MG TABLET PO SCH (10:17)
[2022-04-04] MEDS: amLODIPine BESYLATE 10 MG TABLET (FP) PO SCH (10:17)
[2022-04-04] MEDS: NICOTINE 7 MG/24 HOURS TOPICAL PATCH TD SCH (10:17)
[2022-04-04] MEDS: CARVEDILOL 25 MG TABLET (FP) PO SCH ×2 (10:17→21:11)
[2022-04-04] MEDS: PRENATAL VITAMINS W/ FOLIC ACID TABLET (FP) PO SCH (10:17)
[2022-04-04] MEDS: MELATONIN 5 MG TABLETS PO SCH (21:12)
[2022-04-04] MEDS: THIAMINE HCL 100 MG TABLET (FP) PO SCH (21:12)
[2022-04-04] MEDS: ATORVASTATIN CA 40 MG TABLET (FP) PO SCH (21:12)
[2022-04-05] MEDS: FUROSEMIDE 40 MG TABLET (FP) PO SCH (06:16)
[2022-04-05 07:33] VITALS: BP 126/76; PULSE 66; TEMP 97.5
[2022-04-05] MEDS: CARVEDILOL 25 MG TABLET (FP) PO SCH (09:01)
[2022-04-05] MEDS: amLODIPine BESYLATE 10 MG TABLET (FP) PO SCH (09:02)
[2022-04-05] MEDS: LOSARTAN POTASSIUM 50 MG TABLET PO SCH (09:04)
== END 2022-04-05 09:32 | disposition home or self-care (01) | DRG 772 ==
LOC: YASAS 13:27 → Y3W 22:06
PROVIDERS: ADMIT Allergy & Immunology; ATTEND Allergy & Immunology
PROC: HZ42ZZZ Group Counseling for Substance Abuse Treatment, Cognitive-Behavioral (ICD-10-PCS; principal; 2022-03-19)
DX: F10.20 Alcohol dependence, uncomplicated (principal); F14.10 Cocaine abuse, uncomplicated; F17.210 Nicotine dependence, cigarettes, uncomplicated; F41.9 Anxiety disorder, unspecified; F32.A Depression, unspecified; I11.0 Hypertensive heart disease with heart failure; I50.9 Heart failure, unspecified; E78.5 Hyperlipidemia, unspecified; E66.01 Morbid (severe) obesity due to excess calories; Z68.42 Body mass index [BMI] 45.0-49.9, adult; Z28.310 Unvaccinated for COVID-19; Z59.02 Unsheltered homelessness
CPT/HCPCS: 36415; 81003; 86780; C9803-CS; U0003; U0005

== ENCOUNTER 2022-04-17 16:13 | Inpatient (IN) | payer BC, OTHER ==
[2022-04-17] MEDS ORDERED: ASPIRIN 81 MG CHEWABLE TABLETS PO ONE (17:19)
[2022-04-17] MEDS ORDERED: chlordiazePOXIDE HCL 25 MG CAPSULE PO ONE (17:21)
[2022-04-17] MEDS ORDERED: FUROSEMIDE 40 MG/4 ML INJECTABLE VIAL IVPUSH ONE (17:21)
[2022-04-17] MEDS ORDERED: ASPIRIN 81 MG CHEWABLE TABLETS ONE (19:05)
[2022-04-17] MEDS ORDERED: chlordiazePOXIDE HCL 25 MG CAPSULE ONE ×2 (19:05→23:50)
[2022-04-17] MEDS ORDERED: FUROSEMIDE 40 MG/4 ML INJECTABLE VIAL ONE (19:05)
[2022-04-17 19:30] LABS: BASO % 0.5 % (0-2.0); EOS % 3.2 % (0-4.5); HEMATOCRIT 44.9 % (35.4-49); HEMOGLOBIN 14.9 GM/dL (11.7-16.9); LYMPH % 26.1 % (8-40); MCH 30.2 pg (25.7-33.7); MCHC 33.3 g/dl (32.0-35.9); MEAN CELL VOLUME 90.8 fl (80-96); MEAN PLT VOLUME 8.3 fl (7.5-11.1); MONO % 7.4 % (3.8-10.2); NEUT % 62.8 % (42.8-82.8); PLATELET COUNT 314 10^3/uL (134-434); RBC 4.94 M/mm3 (4.00-5.60); RDW 13.1 % (11.9-15.9); WHITE BLOOD COUNT 9.5 K/mm3 (4.0-10.0)
[2022-04-17 19:42] LABS: ACTIVATED PTT 31.4 SECONDS (25.2-36.5); INR 1.02 (0.83-1.09); PROTHROMBIN TIME (PATIENT) 11.7 SEC (9.7-13.0)
[2022-04-17 20:12] LABS: ALBUMIN 3.2 g/dl (3.4-5.0); CALCIUM 8.6 mg/dL (8.5-10.1); MAGNESIUM 1.6 mg/dL (1.8-2.4)
[2022-04-17 20:13] LABS: BLOOD UREA NITROGEN 7.1 mg/dL (7-18)
[2022-04-17 20:15] LABS: CREATININE 1.1 mg/dL (0.55-1.3)
[2022-04-17 20:17] LABS: BILIRUBIN,TOTAL 0.5 mg/dL (0.2-1); TOT PROT 6.8 g/dl (6.4-8.2)
[2022-04-17 20:18] LABS: N-TERMINAL BNP 1378.4 pg/ml (5-125)
[2022-04-17 21:27] LABS: CHOLESTEROL 148 mg/dL (50-200); TRIGLYCERIDES 138 mg/dL (0-150)
[2022-04-17 21:28] LABS: LDL CHOLESTEROL (ONLY SJRH) 70 mg/dL (5-100)
[2022-04-17 21:29] LABS: HDL CHOLESTEROL 58 mg/dL (40-60)
[2022-04-17] MEDS ORDERED: MAGNESIUM SULF 50% (8.12 MEQ/2 ML-1 GM VIAL) IVPB ONE (21:38)
[2022-04-17] MEDS ORDERED: THIAMINE HCL 200 MG/2 ML VIAL IVPB ONE (21:38)
[2022-04-17] MEDS ORDERED: LORazepam 2 MG/ML SDV VIAL IVPUSH ONE ×2 (21:41→22:03)
[2022-04-17] MEDS ORDERED: chlordiazePOXIDE HCL 25 MG CAPSULE PO PRN (21:45)
[2022-04-17] MEDS ORDERED: TRIMETHOBENZAMIDE HCL 200MG/2ML INJ IM PRN (22:34)
[2022-04-17] MEDS ORDERED: ATORVASTATIN CA 40 MG TABLET (FP) ONE (23:50)
[2022-04-17] MEDS: ATORVASTATIN CA 40 MG TABLET (FP) PO SCH (23:54)
[2022-04-17] MEDS: chlordiazePOXIDE HCL 25 MG CAPSULE PO SCH (23:54)
[2022-04-17] MEDS ORDERED: THIAMINE HCL 200 MG/2 ML VIAL ONE (23:56)
[2022-04-17] MEDS ORDERED: FOLIC ACID 1 MG TABLET (FP) ONE (23:56)
[2022-04-17] MEDS ORDERED: ENOXAPARIN NA (PORCINE) 40 MG/0.4 ML DISP.SYRIN SQ ONE (23:56)
[2022-04-18] MEDS: ENOXAPARIN NA (PORCINE) 40 MG/0.4 ML DISP.SYRIN SQ SCH ×3 (00:02→22:16)
[2022-04-18] MEDS: FOLIC ACID 1 MG TABLET (FP) PO SCH ×2 (00:02→09:40)
[2022-04-18] MEDS ORDERED: MELATONIN 5 MG TABLETS PO ONE ×2 (01:42→21:24)
[2022-04-18 03:44] VITALS: BMI 46.0
[2022-04-18] MEDS: chlordiazePOXIDE HCL 25 MG CAPSULE PO SCH ×4 (05:17→22:17)
[2022-04-18] MEDS: FUROSEMIDE 40 MG/4 ML INJECTABLE VIAL IVPUSH SCH ×2 (06:05→13:44)
[2022-04-18 07:31] LABS: BASO % 0.4 % (0-2.0); EOS % 3.7 % (0-4.5); HEMATOCRIT 43.6 % (35.4-49); HEMOGLOBIN 14.9 GM/dL (11.7-16.9); LYMPH % 19.3 % (8-40); MCH 30.7 pg (25.7-33.7); MCHC 34.2 g/dl (32.0-35.9); MEAN CELL VOLUME 89.8 fl (80-96); MONO % 6.7 % (3.8-10.2); NEUT % 69.9 % (42.8-82.8); PLATELET COUNT 270 10^3/uL (134-434); RBC 4.85 M/mm3 (4.00-5.60); RDW 12.9 % (11.9-15.9); WHITE BLOOD COUNT 9.7 K/mm3 (4.0-10.0)
[2022-04-18 07:55] LABS: ALBUMIN 3.1 g/dl (3.4-5.0)
[2022-04-18 07:56] LABS: BLOOD UREA NITROGEN 13.5 mg/dL (7-18); CALCIUM 8.7 mg/dL (8.5-10.1)
[2022-04-18 07:58] LABS: PHOSPHOROUS 4.8 mg/dL (2.5-4.9)
[2022-04-18 07:59] LABS: CREATININE 1.2 mg/dL (0.55-1.3)
[2022-04-18 08:01] LABS: BILIRUBIN,TOTAL 0.7 mg/dL (0.2-1); TOT PROT 6.6 g/dl (6.4-8.2)
[2022-04-18] MEDS: THIAMINE HCL 100 MG TABLET (FP) PO SCH (09:40)
[2022-04-18] MEDS: NICOTINE 14 MG/24 HOURS TOPICAL PATCH TD SCH ×2 (09:41→09:47)
[2022-04-18 11:14] LABS: PHOSPHOROUS 5.1 mg/dL (2.5-4.9)
[2022-04-18 14:34] LABS: PHENCYCLIDINE,URINE NEGATIVE (NEGATIVE); URINE BENZODIAZEPINES NEGATIVE (NEGATIVE)
[2022-04-18 14:36] LABS: COCAINE, UR POSITIVE (NEGATIVE); METHADONE, UR NEGATIVE (NEGATIVE); OPIATES, URI NEGATIVE (NEGATIVE); URINE AMPHETAMINES NEGATIVE (NEGATIVE); URINE BARBITURATES NEGATIVE (NEGATIVE)
[2022-04-18] MEDS ORDERED: LOSARTAN POTASSIUM 25 MG TABLET PO ONE (20:33)
[2022-04-18] MEDS: ATORVASTATIN CA 40 MG TABLET (FP) PO SCH (22:16)
[2022-04-19] MEDS: FUROSEMIDE 40 MG/4 ML INJECTABLE VIAL IVPUSH SCH ×2 (05:29→14:21)
[2022-04-19] MEDS: chlordiazePOXIDE HCL 25 MG CAPSULE PO SCH ×4 (05:30→22:28)
[2022-04-19 07:29] LABS: BASO % 0.6 % (0-2.0); EOS % 3.9 % (0-4.5); HEMATOCRIT 43.4 % (35.4-49); HEMOGLOBIN 14.9 GM/dL (11.7-16.9); LYMPH % 20.1 % (8-40); MCH 30.8 pg (25.7-33.7); MCHC 34.2 g/dl (32.0-35.9); MEAN CELL VOLUME 89.9 fl (80-96); MEAN PLT VOLUME 7.6 fl (7.5-11.1); MONO % 6.8 % (3.8-10.2); NEUT % 68.6 % (42.8-82.8); PLATELET COUNT 241 10^3/uL (134-434); RBC 4.83 M/mm3 (4.00-5.60); WHITE BLOOD COUNT 7.6 K/mm3 (4.0-10.0)
[2022-04-19 07:46] LABS: CALCIUM 8.8 mg/dL (8.5-10.1)
[2022-04-19 07:47] LABS: ALBUMIN 3.1 g/dl (3.4-5.0); BLOOD UREA NITROGEN 16.1 mg/dL (7-18)
[2022-04-19 07:51] LABS: TOT PROT 6.7 g/dl (6.4-8.2)
[2022-04-19 07:52] LABS: BILIRUBIN,TOTAL 0.9 mg/dL (0.2-1)
[2022-04-19] MEDS: ESCITALOPRAM OXALATE 10 MG TABLET PO SCH (09:25)
[2022-04-19] MEDS: CARVEDILOL 25 MG TABLET (FP) PO SCH ×2 (09:25→22:29)
[2022-04-19] MEDS: LOSARTAN POTASSIUM 50 MG TABLET PO SCH (09:25)
[2022-04-19] MEDS: amLODIPine BESYLATE 10 MG TABLET (FP) PO SCH (09:25)
[2022-04-19] MEDS: THIAMINE HCL 100 MG TABLET (FP) PO SCH (09:26)
[2022-04-19] MEDS: ENOXAPARIN NA (PORCINE) 40 MG/0.4 ML DISP.SYRIN SQ SCH ×2 (09:26→22:28)
[2022-04-19] MEDS: TOPIRAMATE 25 MG TABLET PO SCH (09:26)
[2022-04-19] MEDS: FOLIC ACID 1 MG TABLET (FP) PO SCH (09:26)
[2022-04-19] MEDS: NICOTINE 14 MG/24 HOURS TOPICAL PATCH TD SCH (09:27)
[2022-04-19] MEDS: ATORVASTATIN CA 40 MG TABLET (FP) PO SCH (22:29)
[2022-04-19] MEDS ORDERED: ACETAMINOPHEN 325 MG TABLET (FP) PO ONE (23:57)
[2022-04-20] MEDS ORDERED: chlordiazePOXIDE HCL 10 MG CAPSULE PO PRN
[2022-04-20] MEDS: MELATONIN 5 MG TABLETS PO SCH ×2 (00:03→23:36)
[2022-04-20] MEDS: FUROSEMIDE 40 MG/4 ML INJECTABLE VIAL IVPUSH SCH (05:32)
[2022-04-20] MEDS: chlordiazePOXIDE HCL 10 MG CAPSULE PO SCH ×4 (05:32→22:02)
[2022-04-20] MEDS: LOSARTAN POTASSIUM 50 MG TABLET PO SCH (09:57)
[2022-04-20] MEDS: ENOXAPARIN NA (PORCINE) 40 MG/0.4 ML DISP.SYRIN SQ SCH ×2 (09:57→22:03)
[2022-04-20] MEDS: FOLIC ACID 1 MG TABLET (FP) PO SCH (09:57)
[2022-04-20] MEDS: THIAMINE HCL 100 MG TABLET (FP) PO SCH (09:57)
[2022-04-20] MEDS: amLODIPine BESYLATE 10 MG TABLET (FP) PO SCH (09:57)
[2022-04-20] MEDS: ESCITALOPRAM OXALATE 10 MG TABLET PO SCH (09:57)
[2022-04-20] MEDS: NICOTINE 14 MG/24 HOURS TOPICAL PATCH TD SCH (09:58)
[2022-04-20] MEDS: CARVEDILOL 25 MG TABLET (FP) PO SCH ×2 (09:58→22:02)
[2022-04-20] MEDS: TOPIRAMATE 25 MG TABLET PO SCH (09:58)
[2022-04-20 10:00] LABS: BLOOD UREA NITROGEN 21.8 mg/dL (7-18)
[2022-04-20 10:01] LABS: CALCIUM 8.6 mg/dL (8.5-10.1)
[2022-04-20 10:03] LABS: PHOSPHOROUS 4.7 mg/dL (2.5-4.9)
[2022-04-20 10:04] LABS: CREATININE 1.2 mg/dL (0.55-1.3); MAGNESIUM 1.9 mg/dL (1.8-2.4)
[2022-04-20] MEDS ORDERED: POTASSIUM CHLORIDE TABS 20 MEQ TABLET.ER (FP) PO ONE (14:08)
[2022-04-20] MEDS: FUROSEMIDE 40 MG TABLET (FP) PO SCH (14:38)
[2022-04-20] MEDS: ATORVASTATIN CA 40 MG TABLET (FP) PO SCH (22:02)
[2022-04-21] MEDS: chlordiazePOXIDE HCL 10 MG CAPSULE PO SCH ×2 (05:13→17:17)
[2022-04-21] MEDS: FUROSEMIDE 40 MG TABLET (FP) PO SCH ×2 (05:13→14:01)
[2022-04-21] MEDS ORDERED: POTASSIUM CHLORIDE TABS 20 MEQ TABLET.ER (FP) PO ONE (08:15)
[2022-04-21 08:19] LABS: BLOOD UREA NITROGEN 29.1 mg/dL (7-18); CALCIUM 9.1 mg/dL (8.5-10.1); CREATININE 1.4 mg/dL (0.55-1.3)
[2022-04-21] MEDS: NICOTINE 14 MG/24 HOURS TOPICAL PATCH TD SCH ×2 (09:28→09:43)
[2022-04-21] MEDS: ENOXAPARIN NA (PORCINE) 40 MG/0.4 ML DISP.SYRIN SQ SCH ×2 (09:28→22:15)
[2022-04-21] MEDS: CARVEDILOL 25 MG TABLET (FP) PO SCH ×2 (09:29→22:19)
[2022-04-21] MEDS: LOSARTAN POTASSIUM 50 MG TABLET PO SCH (09:29)
[2022-04-21] MEDS: amLODIPine BESYLATE 10 MG TABLET (FP) PO SCH (09:29)
[2022-04-21] MEDS: FOLIC ACID 1 MG TABLET (FP) PO SCH (09:29)
[2022-04-21] MEDS: ESCITALOPRAM OXALATE 10 MG TABLET PO SCH (09:29)
[2022-04-21] MEDS: THIAMINE HCL 100 MG TABLET (FP) PO SCH (09:29)
[2022-04-21] MEDS: TOPIRAMATE 25 MG TABLET PO SCH (09:35)
[2022-04-21] MEDS ORDERED: chlordiazePOXIDE HCL 10 MG CAPSULE PO PRN (18:27)
[2022-04-21] MEDS ORDERED: TRIMETHOBENZAMIDE HCL 200MG/2ML INJ IM PRN (18:27)
[2022-04-21] MEDS ORDERED: MELATONIN 5 MG TABLETS PO SCH (22:00)
[2022-04-21] MEDS ORDERED: ATORVASTATIN CA 40 MG TABLET (FP) PO SCH (22:00)
[2022-04-22] MEDS ORDERED: chlordiazePOXIDE HCL 10 MG CAPSULE PO ONE ×2 (05:00)
[2022-04-22] MEDS: FUROSEMIDE 40 MG TABLET (FP) PO SCH ×2 (05:28→13:31)
[2022-04-22] MEDS: ENOXAPARIN NA (PORCINE) 40 MG/0.4 ML DISP.SYRIN SQ SCH (09:30)
[2022-04-22] MEDS: CARVEDILOL 25 MG TABLET (FP) PO SCH (09:39)
[2022-04-22 09:45] LABS: BASO % 0.6 % (0-2.0); EOS % 3.3 % (0-4.5); HEMATOCRIT 43.1 % (35.4-49); HEMOGLOBIN 14.6 GM/dL (11.7-16.9); LYMPH % 18.9 % (8-40); MCH 30.7 pg (25.7-33.7); MCHC 33.9 g/dl (32.0-35.9); MEAN CELL VOLUME 90.5 fl (80-96); MEAN PLT VOLUME 7.9 fl (7.5-11.1); MONO % 6.6 % (3.8-10.2); NEUT % 70.6 % (42.8-82.8); PLATELET COUNT 219 10^3/uL (134-434); RBC 4.76 M/mm3 (4.00-5.60); RDW 13.2 % (11.9-15.9); WHITE BLOOD COUNT 8.9 K/mm3 (4.0-10.0)
[2022-04-22] MEDS ORDERED: NICOTINE 14 MG/24 HOURS TOPICAL PATCH TD SCH (10:00)
[2022-04-22] MEDS ORDERED: ESCITALOPRAM OXALATE 10 MG TABLET PO SCH (10:00)
[2022-04-22] MEDS ORDERED: TOPIRAMATE 25 MG TABLET PO SCH (10:00)
[2022-04-22] MEDS ORDERED: LOSARTAN POTASSIUM 50 MG TABLET PO SCH (10:00)
[2022-04-22] MEDS ORDERED: FOLIC ACID 1 MG TABLET (FP) PO SCH (10:00)
[2022-04-22] MEDS ORDERED: THIAMINE HCL 100 MG TABLET (FP) PO SCH (10:00)
[2022-04-22] MEDS ORDERED: amLODIPine BESYLATE 10 MG TABLET (FP) PO SCH (10:00)
[2022-04-22 10:14] LABS: ALBUMIN 3.1 g/dl (3.4-5.0); BLOOD UREA NITROGEN 27.6 mg/dL (7-18); CREATININE 1.3 mg/dL (0.55-1.3)
[2022-04-22 10:16] LABS: BILIRUBIN,TOTAL 0.8 mg/dL (0.2-1); TOT PROT 6.5 g/dl (6.4-8.2)
[2022-04-22 10:17] LABS: CALCIUM 8.8 mg/dL (8.5-10.1); MAGNESIUM 1.8 mg/dL (1.8-2.4)
[2022-04-22 18:37] VITALS: BP 102/61; PULSE 65; TEMP 97.8
[2022-04-22] MEDS ORDERED: FUROSEMIDE 40 MG TABLET (FP) PO ONE ×2 (18:47)
== END 2022-04-22 18:30 | disposition left against medical advice (07) | DRG 291 ==
LOC: JER 16:13 → JERBED 20:51 → OBSVTOIN 21:34 → JERBED 21:34 → J4W 04-18 01:20 → J5S 04-21 18:31
PROVIDERS: ADMIT Internal Medicine; ATTEND Internal Medicine
DX: I11.0 Hypertensive heart disease with heart failure (principal); I50.33 Acute on chronic diastolic (congestive) heart failure; Z68.41 Body mass index [BMI] 40.0-44.9, adult; K92.1 Melena; F10.230 Alcohol dependence with withdrawal, uncomplicated; E66.01 Morbid (severe) obesity due to excess calories; F14.10 Cocaine abuse, uncomplicated; Z28.310 Unvaccinated for COVID-19; F32.A Depression, unspecified; I16.0 Hypertensive urgency; F41.1 Generalized anxiety disorder; G47.33 Obstructive sleep apnea (adult) (pediatric); Z53.29 Procedure and treatment not carried out because of patient's decision for other reasons
CPT/HCPCS: 0241U-QW; 36415; 71046-TC-FY; 80048; 80053; 80061; 80307; 83735; 83880; 84100; 84443; 84484; 85025; 85610; 85730; 93005; 93010; 99285-25; G0378

== ENCOUNTER 2022-05-14 05:36 | Emergency (ER) | payer BC, OTHER ==
[2022-05-14 05:58] VITALS: TEMP 98.1; BMI 39.2
[2022-05-14] MEDS ORDERED: FUROSEMIDE 40 MG/4 ML INJECTABLE VIAL IVPUSH ONE (08:09)
[2022-05-14] MEDS ORDERED: FUROSEMIDE 40 MG/4 ML INJECTABLE VIAL ONE (08:20)
[2022-05-14 08:43] LABS: BASO % 0.5 % (0-2.0); HEMATOCRIT 47.9 % (35.4-49); HEMOGLOBIN 16.7 GM/dL (11.7-16.9); LYMPH % 22.2 % (8-40); MCH 31.1 pg (25.7-33.7); MCHC 34.9 g/dl (32.0-35.9); MEAN CELL VOLUME 89.2 fl (80-96); MEAN PLT VOLUME 7.7 fl (7.5-11.1); MONO % 11.4 % (3.8-10.2); NEUT % 62.9 % (42.8-82.8); PLATELET COUNT 371 10^3/uL (134-434); RBC 5.37 M/mm3 (4.00-5.60); RDW 14.1 % (11.9-15.9); WHITE BLOOD COUNT 8.3 K/mm3 (4.0-10.0)
[2022-05-14 08:57] LABS: INR 1.11 (0.83-1.09); PROTHROMBIN TIME (PATIENT) 12.8 SEC (9.7-13.0)
[2022-05-14 08:59] LABS: ALBUMIN 3.3 g/dl (3.4-5.0); BLOOD UREA NITROGEN 3.3 mg/dL (7-18); CALCIUM 8.9 mg/dL (8.5-10.1); MAGNESIUM 2.1 mg/dL (1.8-2.4)
[2022-05-14 09:04] LABS: TOT PROT 7.7 g/dl (6.4-8.2)
[2022-05-14 09:08] LABS: N-TERMINAL BNP 88.7 pg/ml (5-125)
[2022-05-14 11:45] VITALS: BP 165/93; PULSE 84
== END 2022-05-14 12:21 | disposition home or self-care (01) ==
LOC: JER 05:36
PROC: 3E033GC Introduction of Other Therapeutic Substance into Peripheral Vein, Percutaneous Approach (ICD-10-PCS; principal; 2022-05-14)
DX: I10 Essential (primary) hypertension (principal)
CPT/HCPCS: 0241U-QW; 36415; 71045-TC-FY; 80053; 83735; 83880; 84100; 84484; 85025; 85610; 93005; 93010; 96374; 99285-25